=== PATIENT | male | born 1960 | race Caucasian/White ===

== ENCOUNTER 2020-09-16 13:48 | Inpatient (IN) | payer OTHER, SELFPAY ==
[~2020-09-16] VITALS: Ht 167.6 cm; Wt 89.4 kg
[2020-09-16 15:19] VITALS: Ht 167.6 cm; Wt 89.4 kg
[2020-09-16 15:54] LABS: BASOPHIL % 0.3 % (0.2-1.5); PLATELET COUNT 192 x10^3mcL (152-348)
[2020-09-16 16:03] LABS: RED CELL DISTRIBUTION WIDTH 14.6 % (12.1-16.2)
[2020-09-16 16:08] LABS: CARBON DIOXIDE 25.1 mmol/L (21-32); CHLORIDE SERUM 98 mmol/L (98-107); GFR1 > 60 mL/min; GLUCOSE SERUM 364 mg/dL (74-106); POTASSIUM SERUM 3.5 mmol/L (3.5-5.1); SODIUM SERUM 134 mmol/L (136-145)
[2020-09-16 16:20] LABS: ALKALINE PHOSPHATASE 91 U/L (46-116); ALT/SGPT 51 U/L (16-63); AST/SGOT 26 U/L (15-37); BILIRUBIN TOTAL 0.64 mg/dL (0.20-1.00); LACTIC DEHYDROGENASE (LDH) 494 U/L (100-190); TOTAL PROTEIN, SERUM 6.8 g/dL (6.4-8.2)
[2020-09-16 16:25] LABS: ALBUMIN 2.2 g/dL (3.4-5.0)
[2020-09-16 16:34] LABS: C REACTIVE PROTEIN 30.8 mg/dL (<=0.9)
[2020-09-16 19:07] LABS: microscopic required? YES; urine erythrocyte TRACE (NEGATIVE)
[2020-09-16 19:25] LABS: MAGNESIUM 2.3 mg/dL (1.8-2.4); PHOSPHOROUS 2.8 mg/dL (2.5-4.9)
[2020-09-16 19:33] LABS: CHOLESTEROL/HDL RATIO 10.9; T3 TOTAL 0.73 ng/mL
[2020-09-16 19:36] LABS: FREE T4 1.24 ng/dL (0.76-1.46); FREE THYROXINE INDEX 2.6 ug/dL (1.4-4.5)
[2020-09-16 19:59] LABS: AMPHETAMINE QUAL UR NONE DETECTED (See below)
[2020-09-16 20:22] VITALS: BP 137/83
[2020-09-17] MEDS ORDERED: FORTAMET1000 MG PO (21:41)
[2020-09-18 00:20] VITALS: BP 133/76
[2020-09-18 05:55] VITALS: BP 132/81
[2020-09-18 08:40] VITALS: BP 173/99
[2020-09-18 08:44] LABS: CALCIUM 8.1 mg/dL (8.5-10.1); CARBON DIOXIDE 27.2 mmol/L (21-32); CHLORIDE SERUM 101 mmol/L (98-107); CREATININE SERUM 0.9 mg/dL (0.7-1.3); GFR1 > 60 mL/min; GLUCOSE SERUM 132 mg/dL (74-106); POTASSIUM SERUM 3.5 mmol/L (3.5-5.1); SODIUM SERUM 139 mmol/L (136-145)
[2020-09-18 08:48] LABS: PLATELET COUNT 259 x10^3mcL (152-348); RED CELL DISTRIBUTION WIDTH 14.2 % (12.1-16.2)
[2020-09-18 12:19] VITALS: BP 142/78
[2020-09-18 14:37] LABS: BAND NEUTROPHIL 2 % (0-10); SEGMENTED NEUTROPHILS 79 % (37-75)
[2020-09-18 14:38] LABS: MONOCYTE 5 % (0-7); rbc morphology (normal/abnorm) NORMAL (NORMAL)
[2020-09-18 16:19] VITALS: BP 127/76
[2020-09-18 21:16] VITALS: BP 110/77
[2020-09-19 05:48] VITALS: BP 106/75
[2020-09-19 09:38] VITALS: BP 136/77
[2020-09-19 12:57] VITALS: BP 130/75
[2020-09-19 12:57] LABS: CARBON DIOXIDE 26.3 mmol/L (21-32); CHLORIDE SERUM 103 mmol/L (98-107); CREATININE SERUM 0.8 mg/dL (0.7-1.3); GFR1 > 60 mL/min; GLUCOSE SERUM 175 mg/dL (74-106); POTASSIUM SERUM 3.6 mmol/L (3.5-5.1); SODIUM SERUM 140 mmol/L (136-145)
[2020-09-19 13:21] LABS: BASOPHIL % 0.4 % (0.2-1.5); PLATELET COUNT 259 x10^3mcL (152-348); RED CELL DISTRIBUTION WIDTH 14.3 % (12.1-16.2)
[2020-09-19 17:26] VITALS: BP 138/86
[2020-09-19 22:28] VITALS: BP 137/77
[2020-09-20 04:59] VITALS: BP 129/79
[2020-09-20 08:55] VITALS: BP 137/86
[2020-09-20 11:01] LABS: BASOPHIL % 0.2 % (0.2-1.5); PLATELET COUNT 317 x10^3mcL (152-348)
[2020-09-20 11:28] LABS: CALCIUM 8.2 mg/dL (8.5-10.1); CARBON DIOXIDE 28.9 mmol/L (21-32); CHLORIDE SERUM 102 mmol/L (98-107); CREATININE SERUM 0.8 mg/dL (0.7-1.3); GFR1 > 60 mL/min; GLUCOSE SERUM 151 mg/dL (74-106); POTASSIUM SERUM 3.5 mmol/L (3.5-5.1); SODIUM SERUM 138 mmol/L (136-145)
[2020-09-20 11:40] LABS: RED CELL DISTRIBUTION WIDTH 14.8 % (12.1-16.2)
[2020-09-20 13:13] VITALS: BP 134/83
[2020-09-20 17:00] VITALS: BP 140/91
[2020-09-20 21:22] VITALS: BP 117/79
[2020-09-21 05:36] VITALS: BP 124/77
[2020-09-21 08:42] LABS: BASOPHIL % 0.4 % (0.2-1.5); PLATELET COUNT 345 x10^3mcL (152-348)
[2020-09-21 09:09] LABS: CALCIUM 8.2 mg/dL (8.5-10.1); CARBON DIOXIDE 28.9 mmol/L (21-32); CHLORIDE SERUM 103 mmol/L (98-107); CREATININE SERUM 0.9 mg/dL (0.7-1.3); GFR1 > 60 mL/min; GLUCOSE SERUM 62 mg/dL (74-106); POTASSIUM SERUM 3.3 mmol/L (3.5-5.1); SODIUM SERUM 140 mmol/L (136-145)
[2020-09-21 09:14] LABS: RED CELL DISTRIBUTION WIDTH 14.7 % (12.1-16.2)
[2020-09-21 09:19] VITALS: BP 134/76
[2020-09-21] MEDS ORDERED: VENTOLIN H0.09 MG/A1 INH (09:49)
[2020-09-21] MEDS ORDERED: FORTAMET1000 MG PO (09:49)
[2020-09-21] MEDS ORDERED: ZES20 PO (09:50)
[2020-09-21] MEDS ORDERED: MUCINEX600 MG PO (09:50)
[2020-09-21] MEDS ORDERED: ELIQUIS2.5 MG PO (09:51)
[2020-09-21] MEDS ORDERED: DECADRON6 MG PO (09:51)
[2020-09-21] MEDS ORDERED: LANTI SQ (09:52)
[2020-09-21] MEDS ORDERED: INSULIN SYRING1 EA29 SQ (09:53)
[2020-09-21] MEDS ORDERED: BLOOD LANCETS1 EACH TOP (09:53)
[2020-09-21] MEDS ORDERED: BLOOD GLUCOSE1 EAC3 MC (09:53)
[2020-09-21] MEDS ORDERED: EASY COMFORT ALCO70% TOP (09:54)
[2020-09-21] MEDS ORDERED: TEST STRIPS1 EACH MC (09:54)
[2020-09-21 13:01] VITALS: BP 129/92
[2020-09-21 13:40] VITALS: BP 129/92
[2020-09-21] MEDS ORDERED: MICROZIDE12.5 MG PO (13:51)
[2020-09-21] MEDS ORDERED: LISINOPRIL40 MG PO (13:52)
== END 2020-09-21 14:57 | disposition home or self-care (01) | DRG 177 ==
LOC: ED 13:48 → DU 18:01
PROVIDERS: Emergency Medicine; Family Medicine; Neuromusculoskeletal Medicine, Sports Medicine; ADMIT Internal Medicine; ATTEND Internal Medicine
DX: U07.1 COVID-19 (principal); J12.89 Other viral pneumonia; J96.01 Acute respiratory failure with hypoxia; E87.1 Hypo-osmolality and hyponatremia; D68.59 Other primary thrombophilia; E87.2 Acidosis; E83.51 Hypocalcemia; I10 Essential (primary) hypertension; E11.65 Type 2 diabetes mellitus with hyperglycemia
CPT/HCPCS: 36600; 82962; 83880; 84439; 85378; 87804; 94150; G0378; J1100; J1650; J1815; J3535; U0003